=== PATIENT | male | born 1955 | race Caucasian/White ===

== ENCOUNTER 2019-07-02 16:21 | Emergency (ER) | payer OTHER ==
--- OUTSIDE RECORDS SUMMARY | 2019-07-02 16:33 | XMS REPORT | Continuity of Care Document ---
:1955 Author Organization 0001 - [employer] [facility] Address [address] [place] [address] Phone Care Team Providers Name Role Phone RICHIE OGLESBY DO Unavailable Unavailable Allergies, Adverse Reactions, Alerts Substance Reaction Status No Known Allergies Active Medications Medication Instructions Dosage Effective Dates Status Comments (start - stop) Zoloft 100 mg take 1 tablet by 100 MG - Active tablet oral route 2 times every day meloxicam 15 mg take 1 tablet by 15 MG - Active tablet oral route every day with food for 1-2 weeks and then as needed for pain Nicotrol 10 mg inhale (1UNITS) by 1 UNITS - Active inhalation inhalation route 6 cartridge times every day as needed Zoloft 100 mg TAKE 1 TABLET BY - No Longer tablet MOUTH TWO TIMES Active DAILY Problems Condition Effective Dates (start - stop) Clinical Status Plantar fasciitis Tick bite of right calf, initial encounter ^ Bitten or stung by nonvenomous insect and other nonvenomous arthropods, initial encounter Encounter for screening for malignant - neoplasm of colon Encntr for general adult medical exam w/o abnormal findings Screening for malignant neoplasm of colon Lyme disease Body mass index (BMI) 22.0-22.9, adult - Adult general medical exam BRBPR (bright red blood per rectum) History of basal cell carcinoma Screening PSA (prostate specific antigen) Body mass index (BMI) of 21.0 to 21.9 in adult Lateral epicondylitis of right elbow Blood in stool, cristy Elbow tendonitis Lateral epicondylitis of right elbow Elbow pain, right Upper back pain on left side Pain in thoracic spine - Tick bite of forearm, right, initial encounter ^ Bit/stung by nonvenom insect & oth nonvenom arthropods, init Thrombocytopenia Hyperlipidemia NEC/NOS URI Migraines Mole Hyperlipidemia NEC/NOS Depression Hyperlipidemia NEC/NOS BPH (benign prostatic hypertrophy) Acute headache Diplopia AbFnd, immunologil NOS Pain in joint, upper arm Left elbow pain Depression Hyperlipidemia NEC/NOS AbFnd, immunologil NOS Pain in joint, upper arm Blood in stool - Routine General Medical Exam BPH (benign prostatic hypertrophy) OLY positive Abnormal laboratory test Left elbow pain Polyarthralgia Left elbow pain Migraines Polyarthralgia Numbness and tingling in left hand Cervical radiculopathy Tendonitis of elbow, left Synovitis NEC - Lateral epicondylitis of left elbow Epicondylitis, lateral - Abnormal loss of weight Abnormal loss of weight - Fatigue Weight loss Pharyngitis Night sweats Fatigue / Malaise - Abnormal loss of weight - Pharyngitis, Acute - Hyperhidrosis - BPH - Chronic Panic disorder - Chronic Dependence, alcohol NEC/NOS, in - Chronic remission Hyperlipidemia NEC/NOS - Chronic Examination, routine medical Routine Procedures Procedure Date Procedure Unknown Results Test Name Date and Time Measure Units Reference Range Abnormal Flag Status Comments Unknown Encounters Encounter Practice Location Reason(s) Diagnoses Date Provider Providers Description For Visit Copied on Encounter 0001 - S Primary Dec- BERTINI [employer], [facility] 7- RICHIE. 800 33-57 9 [facility], [place], [facility], [address]. [place], [place], tel:[phone], 873696 tel:[phone] 0001 - [facility] Primary Plantar Sep- [facility], [facility] fasciitisTick 3-201 MARÍA. 33-57 bite of right 9 [facility] calf, [facility] [address], Street, encounter [facility] ^[place], [address]. [place], stung by tel:[phone], [place] nonvenomous 740652 tel:[phone] insect and [phone] other nonvenomous arthropods, initial encounter 0001 - [facility] Encounter for [facility] [facility], screening for 2 RONALD. 40 33-57 malignant 9 [address] D[address] neoplasm of [address], [address], colon 3, Joe [place], [facility], [place], [address]. [address], [place] tel:[phone] tel:[phone] 0001 - S Primary Encntr for [employer] [facility], [facility] general adult 8 RICHIE. 800 33-57 medical exam 8 [place] Feliberto w/o abnormal Road, [place], findings[place]i [place], [address]. [place], [place], malignant tel:[phone], [place] neoplasm of 923886 tel:[phone] colonLyme [phone] diseaseBody mass index (BMI) 22.0-22.9, adult 0001 - [facility] Primary Adult general [facility], [facility] medical 8 MARÍA. 33-57 examBRBPR 7 [address] [place] Dao ([address] red [address], Street, blood per [facility] rect[place], [address]. [place], of basal cell tel:[phone], [place] carcinomaScreen 153880 tel:[phone] ing PSA [id number] (prostate specific antigen)Body mass index (BMI) of 21.0 to 21.9 in adult 0001 - S Primary Lateral [employer], [facility] epicondylitis 2- RICHIE. 800 33-57 of right elbow [address] [facility] [address], [place], [facility], [address]. [place], [place], tel:[phone], [place] 946563 tel:[phone] 0001 [facility] Primary Blood in stool, [employer], [facility] frankElbow 0- RICHIE. 800 33-57 tendonitis [address] [facility] [address], Street, [facility], [address]. [place], [place], tel:[phone], [place] 307184 tel:[phone] 0001 - S Primary Lateral October-2 [employer], Care [place] epicondylitis 0-201 RICHIE. 800 33-57 of right elbow 6 [facility], [address]. [place], [place], tel:[phone], [place] 983411 tel:[phone] 0001 - S Primary Elbow pain, October- [employer], [facility] [place] right 0-201 MARÍA. 33-57 6 800 [facility], [address]. [place], [place], tel:[phone], [place] 256963 tel:[phone] 0001 - S Walk-In Upper back pain Dec-0 [employer], Center Lisa on left 7 EDUARD. 3357 sidePain in 5 4417 Lisa Kaiser thoracic spine [facility], [facility], [place], [place], [address]. [address], [place] tel:[phone] tel:[phone] 0001 - S Primary Tick bite of [employer], [facility] forearm, right, 2-201 MARÍA. 33-57 initial 5 800 [facility], ^Bit/stung [place] [facility] [place], [address]. [place], & oth nonvenom tel:[phone], [place] arthropods, 122232 tel:[phone] 0001 - S Primary Examination, Aug-2 [employer] [facility], [facility] [place] routine medical 4- RICHIE. 800 33-57 5 [facility], [address]. [place], tel:[phone], [place] 198785 tel:[phone] 0001 - S Primary Thrombocytopeni Dec-2 [employer], [facility] [place] a 3-201 RICHIE. 800 33-57 4 [facility], [address]. [place], [place], tel:[phone], [place] 750574 tel:[phone] 0001 - S Primary Hyperlipidemia May- [facility], [facility] NEC/NOSURIMigra 2-201 [facility]. 800 33-57 inesMole 4 [facility], [facility], [address]. [place], [place], tel:[phone], [place] 848583 tel:[phone] 0001 - S Primary Hyperlipidemia Adan- [facility], [facility] [place] NEC/NOS 8-201 [facility]. [facility] 33-57 4 [facility], [facility], [address]. [place], [place], tel:[phone], [place] 223149 tel:[phone] 0001 - S Primary DepressionHyper Adan- [facility], [facility] lipidemia 6- [place] [address] 33-57 NEC/NOSBPH 4 [facility] ([facility] [address], [place], [facility] hypertrophy) [place], [address]. [place], [place], tel:[phone], [place] 595873 tel:[phone] 0001 - S Walk-In Acute Aug-0 [facility], [facility] headacheDiplopi 6 AALIYAH. 4417 Provider: 33-57 a 4 Lisa WALKIN [facility], [facility] [place], [address]. [address], [address], [place] tel:[phone] [place], tel:[phone] [place], [address]. [phone] 0001 - S Lisa AbFnd, [employer]OU[employer]I S Inc, Rheumatology immunologil 3 HENDA. 4433 33-57 NOSPain in 4 [facility] joint, upper E, Street, arm Rheumatolog [facility], [place], [place], [address]. [address], [place] tel:[phone] tel:[phone] 0001 - S Primary Left elbow Dec- [employer], [facility] painDepressionH 6- [facility]. 800 33-57 yperlipidemia 3 [facility] NEC/NOS Road, [facility], [address]. [place], tel:[phone], [place] 026827 tel:[phone] 0001 - S Lisa AbFnd, Sep-0 BOUALI [employer] [facility], Rheumatology immunologil 3-201 HENDA. 4433 33-57 NOSPain in 3 Lisa Pkaditya Dao joint, upper E, Street, arm Rheumatolog [place], Lisa, [place], [address]. [address], [place] tel:[phone] tel:[phone] 0001 - S Primary Blood in [employer], [facility] stoolRoutine 9 [facility]. 800 33-57 General Medical 3 [facility] ExamBPH (benign Road, Street, prostatic [facility] [place]) [place], [address]. [place], [place], tel:[phone], [place] 893597 tel:[phone] 0001 - S Lisa OLY BOKaboozaI [employer] Inc, Rheumatology positiveAbnorma 2-201 HENDA. 4433 33-57 l laboratory 3 Lisa Chester Dao testLeft elbow E, Street, pain Rheumatolog Joe y, Lisa, [place], [place], [address]. [address], [place] tel:[phone] tel:[phone] 0001 - S Primary Polyarthralgia [employer], [facility] 4 [facility]. [facility] 33-57 3 [facility], [facility], [address]. [place], [place], tel:[phone], [place] 979954 tel:[phone] 0001 - S Primary Left elbow [employer], [facility] painMigrainesPo 5 [facility]. 800 33-57 lyarthralgia 3 [facility], [facility], [address]. [place], [place], tel:[phone], [place] 550708 tel:[phone] 0001 - S Primary Numbness and Adan- [employer] Inc, [facility] [place] tingling in OLGA. 3357 left hand 3 800 [facility], [facility] [address], [address]. [place], [place], tel:[phone], [place] 638764 tel:[phone] 0001 - S Primary Cervical Adan- [facility], [facility] [place] radiculopathy [facility]. [facility] Provider: 33-57 3 [facility], [facility], 800 [facility], [address], [place], [place], tel:[phone] [place], [facility], [place] [address] [place], [address]. tel:+60 tel:[phone] 0001 - S Primary Tendonitis of October- [facility], [facility] [place] elbow, [facility]. 800 33-57 leftSynovitis 3 [facility], [facility], [address]. [place], [place], tel:[phone], [place] 600208 tel:[phone] 0001 - S Walk-In Lateral Apr-0 S [facility], Center [place] epicondylitis of left 3 Feliberto [facility], [facility], [place], [address], [place] tel:[phone] 0001 - [facility] Primary Abnormal loss Dec-1 [facility], Care of COSMO. 441657 [place] weightAbnormal 2 Lisa [place], [address]. [address], [place] tel:[phone] tel:[phone] 0001 - S Primary BPHPanic Adan- [facility] Inc, Care disorderDepende COSMO. 4416 33-57 Reading nce, alcohol 2 Lisa Feliberto NEC/NOS, in [facility], remissionHyperl [place], [place], [place], NEC/NOSFatigueW [address]. [address], [place] eight tel:34 tel:[phone] lossPharyngitis [phone] Night sweatsFatigue / MalaiseAbnormal loss of weightPharyngit is, AcuteHyperhidro sis Family History Family Member Diagnosis Age At Onset Family history of Congestive heart failure Family history of Alzheimer's Disease Family history of Cancer, throat Immunizations Vaccine Date Status Comments Influenza, injectable, administered Source: New Immunization quadrivalent, preservative Record free, split virus Pneumo (2 yrs and older) administered Source: New Immunization (PPV23) Record Influenza, injectable, administered Source: New Immunization quadrivalent, preservative Record free, split virus 3 years or older, Fluarix Quad TDAP (Boostrix or Adacel) administered Source: Source Unspecified Tdap administered Note: Abstracted:01/28/2013 ; Source: New Immunization Record Payers Payer name Insurance type Covered republican ID Authorization(s) Dotty Cooper [id number] Dotty Cooper [id number] Social History Type Description Quantity Date Captured Comments Alcohol Use Details Unknown Caffeine Use Details Unknown Tobacco Use Status Smoking Status Unknown Vital Signs Date / Height Weight BMI Pulse Blood Temperature Respiratory Body Head BMI Time: Rate Pressure Rate Surface Circumference percentile Area Unknown Chief Complaint And Reason For Visit No information Reason For Referral Reason For Referral Unknown Plan Of Care Date Type Action Status Referral Ordered: ordered ALANA DE JESUS MD -Gastroenterology (related to Screening for malignant neoplasm of colon) Referral Referred To: ordered ALANA DE JESUS MD [address] [place] [address], [address]RD FLOOR [place], [place] [id number] Ordered: Referrals: Gastroenterology. ALANA DE JESUS MD. Evaluate and treat Referral Referred To: ordered Physical Therapy Ordered: Referrals: Physical Therapy. Location: [facility] [place]. Evaluate and treat Referral Ordered: ordered Xray Elbow complete (must choose side) Right Referral Ordered: ordered Xray Spine Thoracic complete Appointment date/timeframe: Stat Referral Referred To: ordered NATHAN STEWARD [address] [place], [phone] Ordered: NATHAN STEWARD. Dermatology. Consult and treat. Appointment date/timeframe: 06/19/2014 Referral Ordered: ordered CT Brain/Head Angiogram Referral Ordered: ordered CT Neck Angiogram Carotids Referral Referred To: ordered OLGA SEN [address] [place], [phone] Ordered: OLGA SEN. Ophthalmology. Consult and treat. Appointment date/timeframe: Today Referral Ordered: ordered . Rheumatology. Consult and treat. Referral Ordered: ordered Nerve conductn motorand/or sensory Using Preconfig Left arm Appointment date/timeframe: 12/24/2012 Referral Ordered: ordered MRI of cervical spine w/o contrast Appointment date/timeframe: 12/03/2012 Referral Ordered: ordered . Physical Therapy. Evaluate patient, develop plan and implement plan. Appointment date/timeframe: 11/01/2012 Referral Ordered: ordered . Ortho Surg. Consult and treat. Appointment date/timeframe: 09/24/2012 Date Type Problem Goal Intervention Status Start Date Unknown History Of Present Illness Encounter Date Complaint History Of Present Illness No information Functional Status Encounter Date Functional Assessment Cognitive Assessment Unknown Medications Administered Medication Instructions Dosage Effective Dates (start - stop) Status Comments Drug Treatment Unknown Instructions Date Instruction Additional Information Bite site appears normal. Discussed Related to Tick bite of right calf, avoidance of future bites, signs of initial encounter ^ Lyme disease. Call with any questions or concerns. Handout about self-care and stretching Related to Plantar fasciitis provided.Recommend wearing well-cushioned shoes, try a gel heel insert.Try icing foot after you've been standing or walking for a prolonged period of time.Take meloxicam daily with food for 1-2 weeks and then as needed.If your symptoms persist or worsen please let us know as you may need a referral to podiatry. Routine blood work. Please quit Related to Adult general medical smoking - let us know how we can exam help.Healthful, varied diet. Exercise daily. Avoid weight gain. Limit alcohol to no more than 2 servings daily or avoid all together. Seatbelt in car at all times and avoid distracted driving. High-fiber diet. If bleeding persists Related to BRBPR (bright red blood and you desire further testing please per rectum) let us know. Discussed risks of false positive Related to Screening PSA ( prostate results. You'd like to proceed with specific antigen) screening PSA. Please establish with [place] [facility] in Related to History of basal cell [place] area. If you need a referral carcinoma please let us know. Sunscreen every day!No concerning skin lesions seen during visit but you should follow with dermatology with your skin cancer history. Check x-ray since pain is over the Related to Elbow pain, right radial head. Recommend consistent use of Meloxicam with food once daily for 2 weeks regardless of your pain. Ice after use and try to avoid excessive or repetative use. Follow up as already scheduled with Dr. Oglesby and let him know how you are doing. Avoid heavy lifting or straining. Related to Upper back pain on left Apply Ice alternating with heat, and side use otc NSAIDs such as naproxen or Ibuprofen as needed.Monitor area for rash. if one develops then return immediately for recheck. Followup with your primary physician in 5-7 days for recheck, sooner if new or worsening symptoms occur.- Thank you for choosing the [facility]. We hope that you will be feeling better soon.Any condition can change and some diseases may worsen despite proper treatment. Other problems may begin with vague or unusual symptoms and only over time will the problem become more clear, making it possible to arrive at the correct diagnosis. Your visit today is not a substitute for, or an effort to provide complete medical care. In most cases, you should let your primary care doctor check you again. Tell your doctor about any new or lasting problems. If you do not have a primary care provider, you have been given a list today of local providers who are accepting new patients. All x-rays are interpreted by a radiologist, usually within 48 hours. If there is any important difference between the radiologist's interpretation and what you were told today by the provider, you will be notified. If you had cultures done today, results will be available in 72 hours, depending on specimen.- No need for any treatment at this Related to Tick bite of forearm , time. Any remaining mouth parts will right, initial encounter ^ work their way out as the bite heals. The small amount of redness is a normal response to the bite and the tick's saliva and does not mean you have Lyme disease. It is highly unlikely that you will develop Lyme disease from this bite, but if in the future you develop a red, spreading rash (oval, round, or bull's eye in shape), unexplained fever, body aches, numbess, or any other unusual symptom please follow up. Please wear long sleeves and pants when in best or long grass areas, can treat clothing and equipment with permethrin.
--- NOTE | 2019-07-02 18:38 | ED ---
GI/ HPI - HPI Summary HPI Summary: Patient complains of sudden onset painless gross hematuria 3 days, associated with very mild aching testicles bilaterally. Also complains of left inguinal hernia 2 months without pain. Denies trauma, fever, cough, sore throat, CP, SOB, N/V/D, abdominal pain, change in BM, penile discharge, testicular erythema , swelling. Medical history is none. No anti-coag. - History of Current Complaint Chief Complaint: EDUrogenitalProblems Time Seen by Provider: 07/02/19 18:30 Stated Complaint: HEMATURIA PER PT Hx Obtained From: Patient Onset/Duration: Started Days Ago Timing: Intermittent Current Severity: None Pain Intensity: 0 Associated Signs and Symptoms: Positive: Hematuria Aggravating Factor(s): Nothing Alleviating Factor(s): Nothing - Allergy/Home Medications Allergies/Adverse Reactions: Allergies Allergy/AdvReac Type Severity Reaction Status Date / Time No Known Allergies Allergy Verified 07/02/19 16:26 Home Medications: Home Medications Sertraline* [Zoloft*] 100 mg PO BID 07/02/19 [History Confirmed 07/02/19] PMH/Surg Hx/FS Hx/Imm Hx Endocrine/Hematology History: Denies: Hx Anticoagulant Therapy Cardiovascular History: Denies: Hx Pacemaker/ICD History: Denies: Hx Dialysis Sensory History: Denies: Hx Eye Prosthesis Opthamlomology History: Denies: Hx Legally Blind EENT History: Denies: Hx Deafness Neurological History: Denies: Hx Dementia - Immunization History Date of Influenza Vaccine: none this year Infectious Disease History: No Infectious Disease History: Denies: Traveled Outside the [place] in Last 30 Days - Family History Known Family History: Positive: Non-Contributory - Social History Alcohol Use: None Alcohol Amount: 20 years sober Substance Use Type: Reports: Marijuana Smoking Status (MU): Heavy Every Day Tobacco Smoker Review of Systems Constitutional: Negative Eyes: Negative ENT: Negative Cardiovascular: Negative Respiratory: Negative Gastrointestinal: Negative Positive: hematuria Musculoskeletal: Negative Skin: Negative Neurological: Negative Psychological: Normal All Other Systems Reviewed And Are Negative: Yes Physical Exam Triage Information Reviewed: Yes Vital Signs On Initial Exam: Initial Vitals Temp Pulse Resp BP Pulse Ox 97.7 F 83 16 150/80 96 07/02/19 16:23 07/02/19 16:23 07/02/19 16:23 07/02/19 16:23 07/02/19 16:23 Vital Signs Reviewed: Yes Appearance: Positive: Well-Appearing Skin: Positive: Warm Head/Face: Positive: Normal Head/Face Inspection Eyes: Positive: Normal Neck: Positive: Supple Respiratory/Lung Sounds: Positive: Clear to Auscultation Cardiovascular: Positive: Normal Abdomen Description: Positive: Nontender Male Genital Exam: Positive: Normal Genitalia, Hernia Mass - left inguinal, reproducible. Negative: Epididymal Tenderness, Erythema, Inguinal Tenderness, Lesions, Scrotum Tenderness (R), Scrotum Tenderness (L), Testicular Tenderness ( R), Testicular Tenderness (L), Urethral Discharge Neurological: Positive: Normal Psychiatric: Positive: Normal AVPU Assessment: Alert - Eagle Coma Scale Best Eye Response: 4 - Spontaneous Best Motor Response: 6 - Obeys Commands Best Verbal Response: 5 - Oriented Coma Scale Total: 15 Procedures - Sedation Patient Received Moderate/Deep Sedation with Procedure: No Diagnostics - Vital Signs Vital Signs Temp Pulse Resp BP Pulse Ox 07/02/19 18:03 98.0 F 69 16 153/99 98 07/02/19 16:23 97.7 F 83 16 150/80 96 - Laboratory Result Diagrams: 07/02/19 19:16 07/02/19 19:16 Lab Statement: Any lab studies that have been ordered have been reviewed, and results considered in the medical decision making process. GIGU Course/Dx - Course Course Of Treatment: Patient complains of sudden onset painless gross hematuria 3 days, associated with very mild aching testicles bilaterally. Also complains of left inguinal hernia 2 months without pain. Denies trauma, fever , cough, sore throat, CP, SOB, N/V/D, abdominal pain, change in BM, penile discharge, testicular erythema, swelling. Medical history is none. No anti- coag. Vital signs within normal limits. Labs unremarkable. Testicular ultrasound positive for mild right hydrocele. Question of right appendix testis measuring 3-4 mm otherwise negative testicular sonogram. CT abdomen and pelvis positive for borderline splenomegaly. Otherwise negative CT of abdomen and pelvis. - Diagnoses Provider Diagnoses: Hematuria Discharge ED - Sign-Out/Discharge Documenting (check all that apply): Patient Departure - Discharge Plan Condition: Stable Disposition: HOME Patient Education Materials: Hematuria (ED) Referrals: Kartik Herring DO [Primary Care Provider] - Van Cobian MD [Medical Doctor] - Additional Instructions: If symptoms persist more than 1 week follow-up with urology Dr. Cobian for further evaluation. Return to the ED for any new or worsening symptoms. - Billing Disposition and Condition Condition: STABLE Disposition: Home
[2019-07-02 18:58] LABS: Urine Appearance Cloudy; Urine Bilirubin Negative (Negative); Urine Blood 3+ (Negative); Urine Color Yellow; Urine Glucose Negative (Negative); Urine Ketones Negative (Negative); Urine Nitrite Negative (Negative); Urine Protein 2+(100 mg/dL) (Negative); Urine Specific Gravity 1.021 (1.010-1.030); Urine Urobilinogen Negative (Negative)
[2019-07-02 19:16] LABS: Urine Bacteria Absent (Absent); Urine Red Blood Cell 3+(>10/hpf) (Absent); Urine White Blood Cell Absent (Absent)
[2019-07-02 19:41] LABS: ABS Basophils 0.1 10^3/ul (0-0.2); ABS Eosinophils 0.2 10^3/ul (0-0.6); ABS Lymphocytes 1.7 10^3/ul (1.0-4.8); ABS Monocytes 0.4 10^3/ul (0-0.8); ABS Neutrophils 3.9 10^3/ul (1.5-7.7); Eosinophil % 2.9 %; Hematocrit 44 % (42-52); Hemoglobin 15.2 g/dL (14.0-18.0); Lymphocyte % 27.3 %; Mean Corpuscular HGB Conc 34 g/dL (31-36); Mean Corpuscular Hemoglobin 32 pg (27-31); Mean Corpuscular Volume 95 fL (80-94); Mean Platelet Volume 7.4 fL (7.4-10.4); Nucleated Red Blood Cells % 0.1; Platelet Count 163 10^3/uL (150-450); Red Blood Count 4.69 10^6 /uL (4.18-5.48); Red Cell Distribution Width 14 % (10-15); White Blood Count 6.3 10^3/uL (3.5-10.8)
[2019-07-02 19:49] LABS: INR 1.08 (0.82-1.09)
[2019-07-02 19:51] LABS: Albumin 4.3 g/dL (3.2-5.2); Albumin/Globulin Ratio 1.9 (1-3); C Reactive Protein 2.26 mg/L (<8.01); Calcium 9.3 mg/dL (8.6-10.3); EGFR African American 91.9 (>60); Globulin 2.3 g/dL (2-4); Total Bilirubin 0.5 mg/dL (0.2-1.0); Total Protein 6.6 g/dL (6.4-8.9)
[2019-07-02] MEDS ORDERED: Iohexol 300* (CONTRAST) 10 ML SDV IV ONE (20:05)
[2019-07-03 00:01] VITALS: BP 137/82
== END 2019-07-03 00:13 | disposition home or self-care (01) ==
LOC: ED 16:21
DX: R31.0 Gross hematuria (principal); F17.200 Nicotine dependence, unspecified, uncomplicated; Z79.899 Other long term (current) drug therapy
CPT/HCPCS: 36415; 74177; 76870; 80053; 81003; 81015; 85025; 85610; 86140; 99283; Q9967

== ENCOUNTER 2022-09-04 14:14 | Observation (INO) ==
[2022-09-04 16:52] LABS: ABS Basophils 0.1 10^3/ul (0-0.2); ABS Lymphocytes 1.2 10^3/ul (1.0-4.8); ABS Monocytes 0.6 10^3/ul (0-0.8); ABS Neutrophils 4.1 10^3/ul (1.5-7.7); Hematocrit 45 % (42-52); Hemoglobin 15.9 g/dL (14.0-18.0); Mean Corpuscular HGB Conc 35 g/dL (31-36); Mean Corpuscular Hemoglobin 33 pg (27-31); Mean Corpuscular Volume 94 fL (80-94); Mean Platelet Volume 6.8 fL (7.4-10.4); Platelet Count 161 10^3/uL (150-450); Red Blood Count 4.81 10^6 /uL (4.18-5.48); Red Cell Distribution Width 15 % (10-15)
[2022-09-04 16:53] LABS: Eosinophil % 0.7 %; Lymphocyte % 20.5 %; Nucleated Red Blood Cells % 0.1
[2022-09-04 16:55] LABS: Urine Appearance Clear; Urine Color Yellow; Urine Specific Gravity 1.026 (1.002-1.030)
[2022-09-04 16:56] LABS: Urine Bilirubin Negative (Negative); Urine Blood Negative (Negative); Urine Glucose Negative (Negative); Urine Ketones Trace (Negative); Urine Nitrite Negative (Negative); Urine Protein 1+(30 mg/dL) (Negative); Urine Urobilinogen Negative (Negative)
[2022-09-04 16:58] LABS: Urine Bacteria Absent (Absent); Urine Red Blood Cell Absent (Absent); Urine White Blood Cell Trace(0-5/hpf) (Absent)
[2022-09-04 17:14] LABS: ALT 16 U/L (7-52); AST 13 U/L (13-39); Albumin 4.7 g/dL (3.2-5.2); Albumin/Globulin Ratio 2.1 (1-3); Alkaline Phosphatase 52 U/L (35-149); Anion Gap 8 mmol/L (2-11); Blood Urea Nitrogen 22 mg/dL (6-24); C Reactive Protein < 1.00 mg/L (<8.01); CO2 Carbon Dioxide 24 mmol/L (22-32); Calcium 9.5 mg/dL (8.6-10.3); Chloride 101 mmol/L (101-111); Creatine Kinase 191 U/L (10-223); Creatinine, Serum 1.09 mg/dL (0.67-1.17); Globulin 2.2 g/dL (2-4); Glucose 88 mg/dL (70-100); Magnesium 2.3 mg/dL (1.9-2.7); Sodium 133 mmol/L (135-145); Total Protein 6.9 g/dL (6.4-8.9); eGFR CKD-EPI 75.3 (>60)
[2022-09-04] MEDS ORDERED: Senna TAB 8.6 mg TAB PO PRN (23:52)
[2022-09-04] MEDS ORDERED: Morphine 2 MG/ML SYRINGE IV PRN (23:52)
[2022-09-04] MEDS ORDERED: Polyethylene Glycol 3350 17 GM PACKET PO PRN (23:52)
[2022-09-05 00:16] LABS: Folate 6.86 ng/mL (5.90-24.80)
[2022-09-05 00:17] LABS: Vitamin B12 691 pg/mL (180-914)
[2022-09-05] MEDS: Enoxaparin 40 MG/0.4 ML SYR SUBCUT SCH ×2 (00:25→21:03)
[2022-09-05] MEDS: buPROPion SR 100 mg TAB.SR PO SCH ×2 (09:02→20:56)
[2022-09-05] MEDS: Nicotine PATCH 21 MG/24 HR PATCH TRANSDERM SCH (09:04)
[2022-09-05] MEDS: hydrALAZINE 20 mg/ml 1 ML Vial IV IV SLOW PU PRN ×2 (15:25→22:34)
[2022-09-06] MEDS: hydrALAZINE 20 mg/ml 1 ML Vial IV IV SLOW PU PRN (05:05)
[2022-09-06] MEDS ORDERED: hydrALAZINE 20 mg/ml 1 ML Vial IV IV SLOW PU ONE (06:08)
[2022-09-06] MEDS: buPROPion SR 100 mg TAB.SR PO SCH (09:21)
[2022-09-06] MEDS: Nicotine PATCH 21 MG/24 HR PATCH TRANSDERM SCH (09:24)
[2022-09-06 14:34] VITALS: BP 164/90
== END 2022-09-06 15:45 | disposition home or self-care (01) ==
LOC: ED 14:14 → EDHOLD 14:14 → SUATTDRO 23:08 → MEDTELE 09-05 08:29
PROVIDERS: ADMIT Internal Medicine; ATTEND Hospitalist